=== PATIENT | male | born 1975 ===

== ENCOUNTER 2017-06-21 08:42 | Emergency (ER) | payer OTHER ==
[2017-06-21] MEDS ORDERED: Sodium Chloride 0.9% 1,000 ML IV ONE (09:39)
[2017-06-21] MEDS ORDERED: Iohexol 240 (50 ml) PO STA (09:39)
--- NOTE | 2017-06-21 09:39 | C.PDOC ---
History Of Present Illness 41 Y/O MALE PRESENTS TO ED VIA TRANS WITH COMPLAINTS OF NEW ONSET CONSTANT LOCALIZED LLQ PAIN SINCE LAST NIGHT. PATIENT REPORTS SUBJ FEVER AND STATES LAST BM THIS MORNING. PATIENT TOOK NAPROXYN @ 1800 AND DENIES N/V. HO KIDNEY STONES OR ANY OTHER COMPLAINTS AT THIS TIME. PSH NEG. PMD NEG. VIA TRANS NEW ONSET LLQ PAIN SINCE LAST NIGHT. CONSTANT LOCALIZED. SUBJ FEVER. NO NV. LAST BM THIS MORNING. S/P NAPROXYN @ 1800. PSH NEG. PMD NEG. DENIES HO KIDNEY STONES EXAM MOD DIST NONTOXIC HEENT NEG ABD LLQ TEND MOD SOFT NO R/G REMAINDER NEG Time Seen by Provider: 06/21/17 09:09 Chief Complaint (Nursing): Male Genitourinary History Per: Patient History/Exam Limitations: no limitations Onset/Duration Of Symptoms: Days Current Symptoms Are (Timing): Still Present Past Medical History Reviewed: Historical Data, Nursing Documentation, Vital Signs Vital Signs: Last Vital Signs Temp 98 F 06/21/17 14:00 Pulse 60 06/21/17 14:00 Resp 18 06/21/17 14:00 BP 126/68 06/21/17 14:00 Pulse Ox 98 06/21/17 14:00 - Medical History PMH: Hyperlipidemia, TIA Surgical History: No Surg Hx Family History: States: No Known Family Hx - Social History Hx Alcohol Use: No Hx Substance Use: No - Immunization History Hx Influenza Vaccination: Yes Hx Pneumococcal Vaccination: No Review Of Systems Constitutional: Positive for: Fever. Negative for: Chills Gastrointestinal: Positive for: Abdominal Pain. Negative for: Nausea, Vomiting Skin: Negative for: Rash Physical Exam - Physical Exam Appears: Non-toxic, Other (Moderate distress) Skin: Warm, Dry, No Rash Head: Atraumatic, Normacephalic Eye(s): bilateral: Normal Inspection Ear(s): Bilateral: Normal Oral Mucosa: Moist Neck: Normal ROM, Supple Cardiovascular: Rhythm Regular Respiratory: Normal Breath Sounds, No Rales, No Rhonchi, No Wheezing Gastrointestinal/Abdominal: Soft (Moderately), Tenderness (LLQ), No Guarding, No Rebound Back: No CVA Tenderness Extremity: Normal ROM, Capillary Refill (<2 seconds) Neurological/Psych: Oriented x3 ED Course And Treatment - Laboratory Results Result Diagrams: 06/21/17 09:51 06/21/17 09:51 O2 Sat by Pulse Oximetry: 99 (RA) Pulse Ox Interpretation: Normal Progress - Re-Evaluation Re-evaluation Note: 06/21/17 11:08 CO PERSIST PAIN SP MORPHINE. CT PENDING. VSS 06/21/17 12:31 FEELS BETTER, PAIN "ALMOST"RESOLVED. ABD SOFT NT ND NO R/G. S/P LIDOCAINE - Data Reviewed Data Reviewed: Lab, Diagnostic imaging, Old records Medical Decision Making Medical Decision Making: Plan: Abdomen xray, CT abdomen Pelvis ordered. Morphine, Zofran, Iohexol, IV fluids administered Disposition Counseled Patient/Family Regarding: Studies Performed, Diagnosis, Need For Followup, Rx Given - Disposition Referrals: [facility] [Outside] [facility] [Outside] Disposition: HOME/ ROUTINE Disposition Time: 16:30 Condition: IMPROVED Prescriptions: Ciprofloxacin [Cipro] 1 tab PO BID #14 tab Metronidazole [Flagyl] 500 mg PO BID #14 tab Ondansetron [Zofran Odt] 4 mg PO TID PRN #9 odt PRN Reason: Nausea/Vomiting oxyCODONE/Acetaminophen [Percocet 5/325 mg Tab] 1 ea PO Q6 PRN #10 tab PRN Reason: Pain, Moderate (4-7) Instructions: Diverticulitis (ED), Diverticulitis Diet (ED) Forms: [facility] (Ukrainian), Work Excuse Print Language: [place] - Clinical Impression Clinical Impression: Diverticulitis - Scribe Statement The provider has reviewed the documentation as recorded by the Shawnaibdarlene Alexis All medical record entries made by the Shawnaibdarlene were at my direction and personally dictated by me. I have reviewed the chart and agree that the record accurately reflects my personal performance of the history, physical exam, medical decision making, and the department course for this patient. I have also personally directed, reviewed, and agree with the discharge instructions and disposition.
[2017-06-21] MEDS ORDERED: Morphine 4 MG/ML VIAL ONE (09:58)
[2017-06-21] MEDS ORDERED: Sodium Chloride 0.9% 1,000 ML ONE ×2 (09:59→11:19)
[2017-06-21 10:03] LABS: BASO # 0.1 K/uL (0.0-0.2); BASO % 0.5 % (0.0-2.0); EOS # 0.1 K/uL (0.0-0.7); EOS % 0.6 % (0.0-4.0); HEMOGLOBIN 15.3 g/dL (12.0-18.0); LYMPH # 1.5 K/uL (1.0-4.3); LYMPH % 9.8 % (20.0-40.0); MEAN CELL VOLUME 86.8 fL (80.0-94.0); MEAN CORPUSCULAR HGB CONC 34.6 g/dL (33.0-37.0); MEAN PLATELET VOLUME 8.1 fL (7.2-11.7); MONO # 1.2 K/uL (0.0-0.8); NEUT # 12.3 K/uL (1.8-7.0); NEUT % 81.1 % (50.0-75.0); PLATELET COUNT 279 K/uL (130-400); RBC 5.09 Mil/uL (4.40-5.90); RED CELL DISTRIBUTION WIDTH 12.5 % (11.5-14.5); WHITE BLOOD COUNT 15.2 K/uL (4.8-10.8)
[2017-06-21 10:07] LABS: URINE BILIRUBIN NEGATIVE (NEGATIVE); URINE BLOOD SMALL (NEGATIVE); URINE CLARITY Clear (Clear); URINE COLOR YELLOW (YELLOW); URINE GLUCOSE (UA) NEGATIVE (Normal)
[2017-06-21 10:08] LABS: PH,URINE 5.5 (5.0-8.0); URINE LEUKOCYTE ESTERASE NEGATIVE Leu/uL (Negative); URINE NITRATE NEGATIVE (NEGATIVE); URINE PROTEIN NEGATIVE (NEGATIVE); URINE UROBILINOGEN 0.2 mg/dL (0.2-1.0)
[2017-06-21 10:10] LABS: ALB/GLOB RATIO 1.1 (1.0-2.1); ALBUMIN 4.1 g/dL (3.5-5.0); ALT/SGPT 47 U/L (21-72); AST/SGOT 29 U/L (17-59); BLOOD UREA NITROGEN 15 mg/dL (9-20); CALCIUM 8.8 mg/dl (8.6-10.4); GFR AFRICAN-AMERICAN > 60; GFR NON-AFRICAN AMERICAN > 60; LIPASE 45 U/L (23-300)
[2017-06-21] MEDS ORDERED: Iohexol 240 (50 ml) ONE ×2 (10:10→11:18)
[2017-06-21 10:38] LABS: BANDS 1 % (0-2); BASOPHIL 2 % (0-2); EOSINOPHIL 2 % (0-4); LYMPHOCYTE 6 % (20-40); MONOCYTE 2 % (0-10); NEUTROPHIL 87 % (50-75); PLATELET ESTIMATE NORMAL (NORMAL); TOTAL CELLS COUNTED 100
[2017-06-21] MEDS ORDERED: Sodium Chloride 0.9% 1,000 ML IV STA (11:08)
[2017-06-21] MEDS ORDERED: LIDOCAINE IV STA (11:08)
[2017-06-21] MEDS ORDERED: SODIUM CHLORIDE 0.9% IV STA (11:08)
[2017-06-21] MEDS ORDERED: Iohexol 240 (50 ml) PO ONE (11:10)
[2017-06-21] MEDS ORDERED: Iodixanol 320 MG/ML 100 ML BOTTLE IV ONE (14:07)
[2017-06-21 14:13] VITALS: PULSE 60; RESP 18
--- NOTE | 2017-06-21 14:55 | CT ---
PROCEDURE: CT Abdomen and Pelvis with and without intravenous contrast HISTORY: LLQ PAIN RO Diverticulitis, RENAL STONE COMPARISON: Obstructive series performed 06/21/17 TECHNIQUE: Axial images of the abdomen were obtained in the pre contrast, portal venous and delayed phases of enhancement. Coronal and sagittal reformats were generated and reviewed. Contrast dose: 100 mL Visipaque IV Radiation dose: Total exam DLP = 2083.47 mGy-cm. This CT exam was performed using one or more of the following dose reduction techniques: Automated exposure control, adjustment of the mA and/or kV according to patient size, and/or use of iterative reconstruction technique. FINDINGS: LOWER THORAX: Mild right basilar atelectasis. No visible consolidation, pleural effusion, or pneumothorax. LIVER: Unremarkable. GALLBLADDER AND BILE DUCTS: Unremarkable. PANCREAS: Unremarkable. SPLEEN: Unremarkable. ADRENALS: Unremarkable. KIDNEYS AND URETERS: The kidneys enhance symmetrically. No hydronephrosis or obstructing calculus identified. VASCULATURE: No aortic aneurysm. BOWEL: Stomach is nondistended. Lack of oral contrast limits evaluation for bowel pathology. No evidence of bowel obstruction. 5.3 cm segment of wall thickening involving distal left colon with associated inflammatory stranding compatible with acute diverticulitis. APPENDIX: The appendix appears within normal limits of caliber. No secondary signs of acute appendicitis. PERITONEUM: No significant free fluid. No definite free air. LYMPH NODES: No bulky adenopathy identified. BLADDER: Unremarkable. REPRODUCTIVE: The prostate gland measures approximately 3.7 x 4.6 cm. BONES: No acute osseous abnormality is detected. OTHER FINDINGS: Bilateral fat containing inguinal hernias. IMPRESSION: 5.3 cm segment of wall thickening involving distal left colon with associated inflammatory stranding compatible with acute diverticulitis. Correlate clinically.
[2017-06-21] MEDS ORDERED: Ciprofloxacin 400mg/200ml D5W 400 MG/200 ML BAG IV STA (15:16)
[2017-06-21] MEDS ORDERED: metroNIDAZOLE IV 500 mg/100 ml 500 MG/100 ML BAG IV STA (15:29)
[2017-06-21] MEDS ORDERED: metroNIDAZOLE IV 500 mg/100 ml 500 MG/100 ML BAG IV SCH (15:30)
--- NOTE | 2017-06-21 16:53 | RAD ---
PROCEDURE: Radiographs of the chest and abdomen (obstructive series) HISTORY: LLQ PAIN R/O FREE AIR COMPARISON: No prior. TECHNIQUE: AP radiograph of the chest, with upright and supine radiographs of the abdomen. FINDINGS: CHEST: Lungs: Clear. Cardiovascular: Normal size heart. No pulmonary vascular congestion. Pleura: No pleural fluid. No pneumothorax. Other findings: None. ABDOMEN AND PELVIS: Bowel: Stool retention. No evidence of mechanical obstruction. Free air: None. Bones: Inferior thoracic spondylosis. Rightward thoracolumbar convexity Other findings: None. IMPRESSION: No pulmonary infiltrate. Stool retention. No evidence of mechanical bowel obstruction.
[2017-06-21 18:28] VITALS: BP 111/68; TEMP 98.3; O2SAT 99
== END 2017-06-21 18:55 | disposition home or self-care (01) ==
LOC: C.ER 08:42
DX: K57.92 Diverticulitis of intestine, part unspecified, without perforation or abscess without bleeding (principal)
CPT/HCPCS: 74022; 74178; 80053; 81001; 83690; 85025; 96361; 96374; 96375; 99285; J0744; J1885; J2001; J2270; J2405; J7040; Q9966; Q9967

== ENCOUNTER 2018-07-01 08:48 | Emergency (ER) | payer OTHER ==
[2018-07-01 09:05] VITALS: BP 109/68
--- NOTE | 2018-07-01 09:23 | C.PDOC ---
History Of Present Illness Patient reports flu like symptoms for the past day- fever, congestion, body aches, cough. No recent travel or sick contacts. He took ibuprofen at home with some relief. HPI: Influenza Time Seen by Provider: 07/01/18 09:01 Chief Complaint: Flu-like Symptoms Past Medical History Reviewed: Historical Data Vital Signs: Last Vital Signs Temp 98.6 F 07/01/18 09:04 Pulse 64 07/01/18 09:04 Resp 20 07/01/18 09:04 BP 109/68 07/01/18 09:04 Pulse Ox 99 07/01/18 09:04 [place] Report Viewed: Yes - Medical History PMH: Hyperlipidemia, TIA Family History: States: No Known Family Hx - Social History Hx Alcohol Use: No Hx Substance Use: No - Immunization History Hx Influenza Vaccination: Yes Hx Pneumococcal Vaccination: No Review Of Systems Except As Marked, All Systems Reviewed And Found Negative. Constitutional: Positive for: Fever ENT: Positive for: Nose Congestion Cardiovascular: Negative for: Chest Pain Respiratory: Positive for: Cough. Negative for: Shortness of Breath Gastrointestinal: Negative for: Nausea, Vomiting, Abdominal Pain, Diarrhea Musculoskeletal: Positive for: Other (Myalgias) Skin: Negative for: Rash Physical Exam - Physical Exam Appears: Non-toxic, No Acute Distress Skin: Normal Color, Warm, Dry Oral Mucosa: Moist Cardiovascular: Rhythm Regular Respiratory: Normal Breath Sounds Gastrointestinal/Abdominal: Normal Exam Extremity: No Deformity, No Swelling Neurological/Psych: Oriented x3 Gait: Steady Medical Decision Making Medical Decision Making: Flu swab done and was negative. Advised supportive care at home- fluids, rest, tylenol/motrin as needed for fever or pain. Return to the ED for any new or worsening symptoms. Otherwise follow up with PMD as outpatient. - ECG O2 Sat by Pulse Oximetry: 99 Disposition - Disposition Disposition: HOME/ ROUTINE Disposition Time: 11:12 Condition: STABLE Additional Instructions: JUDIE SANTAMARIA, thank you for letting us take care of you today. Your provider was Marry Osorio MD and you were treated for COUGHING/CONGESTION. The emergency medical care you received today was directed at your acute symptoms. If you were prescribed any medication, please fill it and take as directed. It may take several days for your symptoms to resolve. Return to the Emergency Department if your symptoms worsen, do not improve, or if you have any other problems. Please contact your doctor or call one of the physicians/clinics you have been referred to that are listed on the Patient Visit Information form that is included in your discharge packet. Bring any paperwork you were given at discharge with you along with any medications you are taking to your follow up visit. Our treatment cannot replace ongoing medical care by a primary care provider outside of the emergency department. Thank you for allowing the [facility] team to be part of your care today. If you had an X-Ray or CT scan: A Radiologist will review the ED reading if any change in treatment is needed we will contact you. If you had a blood, urine, or wound culture: It will take several days for the results, if any change in treatment is needed we will contact you. If you had an STI test: It will take 48 hours for the results. Please call after 1 week if you have not heard back. Instructions: Viral Syndrome (DC) Forms: [employer] (German) Print Language: [place] - Clinical Impression Clinical Impression: Influenza-like illness
[2018-07-01 11:28] VITALS: PULSE 65; RESP 18; TEMP 98.7; O2SAT 100
== END 2018-07-01 11:28 | disposition home or self-care (01) ==
LOC: C.ER 08:48
DX: J11.1 Influenza due to unidentified influenza virus with other respiratory manifestations (principal)